=== PATIENT | male | born 1970 | race African-American/Black ===

== ENCOUNTER 2024-05-24 12:30 | Inpatient (IN) | payer OTHER ==
[~2024-05-24] VITALS: Ht 165.1 cm; Wt 69.2 kg
[2024-05-24] VITALS (17 sets, daily range): BP systolic 95–118; BP diastolic 53–68
[2024-05-24 12:53] LABS: BASO% 0.2 % (0-3); EOS% 4.6 % (0-8); HEMATOCRIT 27.6 % (39.0-50.0); HEMOGLOBIN 8.6 g/dl (14.0-18.0); IMMATURE GRANULOCYTES 1.4 % (0.0-5.0); LYMPH% 18.3 % (15-41); MEAN CELL VOLUME 82.6 fL CALC (80.0-100.0); MEAN CORPUSCULAR HGB 25.7 pG CALC (26.0-32.0); MEAN CORPUSCULAR HGB CONC 31.2 g/dL CAL (32.0-36.0); NEUT# 9.33 thou/uL (1.82-7.42); NEUT% 68.5 % (42-76); RED BLOOD COUNT 3.34 mill/uL (4.70-6.10)
[2024-05-24 13:06] LABS: ALBUMIN 3.1 g/dL (3.2-5.0); BILIRUBIN, TOTAL 0.3 mg/dL (0.2-1.3); CREATININE 1.1 mg/dL (0.7-1.3); POTASSIUM 3.1 mmol/l (3.5-5.1); TOTAL PROTEIN 6.4 g/dL (6.3-8.2)
[2024-05-24] MEDS ORDERED: SODIUM CHLORIDE 0.9% 1,000 ML IV ONE (13:25)
[2024-05-24] MEDS ORDERED: methylPREDNISolone Sod Succ 40 MG/ML SDV IV ONE (15:15)
[2024-05-24] MEDS ORDERED: POTASSIUM CHLORIDE 20 MEQ/TAB PO ONE (15:20)
[2024-05-24] MEDS ORDERED: ONDANSETRON HCl 4 MG/2 ML SDV IV ONE (15:25)
[2024-05-24] MEDS ORDERED: FERROUS SULFAT325 MG PO (15:34)
[2024-05-24] MEDS ORDERED: PROTONIX40 M2 PO (15:35)
[2024-05-24] MEDS ORDERED: METRONIDAZOLE500 MG PO (15:36)
[2024-05-24] MEDS ORDERED: ACETAMINOPHEN 325 MG/TAB PO PRN (16:05)
[2024-05-24] MEDS ORDERED: MAGNESIUM HYDROXIDE 30 ML UDC PO PRN (16:05)
[2024-05-24] MEDS ORDERED: ONDANSETRON HCl 4 MG/2 ML SDV IV PRN (16:10)
[2024-05-24] MEDS ORDERED: LACTATED RINGER'S 1,000 ML IV PRN (16:10)
[2024-05-24] MEDS ORDERED: Pantoprazole Sodium 40 MG VIAL (Protonix) IV SCH (17:00)
[2024-05-24] MEDS ORDERED: PIPERACILLIN Sodium-Tazobactam 3.375 GM in SODIUM CHLORIDE 0.9% 100 ML IV SCH (18:00)
[2024-05-24] MEDS ORDERED: ENOXAPARIN SODIUM 40 MG/0.4 ML SYR SC SCH (21:00)
[2024-05-24] MEDS ORDERED: methylPREDNISolone Sod Succ 40 MG/ML SDV IV SCH (21:00)
[2024-05-25 04:04] VITALS: BP 103/66
[2024-05-25 05:03] VITALS: BP 103/66
[2024-05-25 05:30] LABS: BASO% 0.1 % (0-3); EOS% 0.1 % (0-8); HEMATOCRIT 27.1 % (39.0-50.0); HEMOGLOBIN 8.1 g/dl (14.0-18.0); IMMATURE GRANULOCYTES 1.6 % (0.0-5.0); MEAN CELL VOLUME 84.2 fL CALC (80.0-100.0); MEAN CORPUSCULAR HGB 25.2 pG CALC (26.0-32.0); MEAN CORPUSCULAR HGB CONC 29.9 g/dL CAL (32.0-36.0); MONO% 2.9 % (2-13); NEUT# 12.02 thou/uL (1.82-7.42); NEUT% 88.3 % (42-76); RED BLOOD COUNT 3.22 mill/uL (4.70-6.10); RED CELL DISTRI WIDTH 16.6 % (11.5-15.5)
[2024-05-25 05:50] LABS: ACT PARTIAL THROMBO TIME 26.3 SECONDS (20.0-32.5); INTERNATIONAL NORMALIZED RATIO 1.1 RATIO (0.7-1.3)
[2024-05-25 05:54] LABS: PROTHROMBIN TIME 10.8 SECONDS (9.0-12.5)
[2024-05-25 05:59] LABS: ALBUMIN 2.7 g/dL (3.2-5.0); BILIRUBIN, TOTAL 0.2 mg/dL (0.2-1.3); C-REACTIVE PROTEIN 1.7 mg/dL (0-0.9); MAGNESIUM 2.2 mg/dL (1.6-2.3); TOTAL PROTEIN 5.9 g/dL (6.3-8.2)
[2024-05-25 06:04] LABS: POTASSIUM 4.2 mmol/l (3.5-5.1)
[2024-05-25 07:44] VITALS: BP 113/68
[2024-05-25] MEDS ORDERED: PANTOPRAZOLE SODIUM Sesquihydr 40 MG/TAB PO SCH (09:00)
[2024-05-25] MEDS ORDERED: IRON DEXTRAN 100 MG/2 ML AMP IV SCH (10:30)
[2024-05-25 16:34] VITALS: BP 116/73
[2024-05-25 18:30] VITALS: BP 109/66
[2024-05-25 18:41] VITALS: BP 109/66
[2024-05-25] MEDS ORDERED: ENOXAPARIN SODIUM 40 MG/0.4 ML SYR SC SCH (21:00)
[2024-05-26] VITALS (10 sets, daily range): BP systolic 117–135; BP diastolic 65–80
[2024-05-26 06:16] LABS: BASO% 0.1 % (0-3); HEMATOCRIT 24.6 % (39.0-50.0); HEMOGLOBIN 7.5 g/dl (14.0-18.0); IMMATURE GRANULOCYTES 2.7 % (0.0-5.0); LYMPH% 8.2 % (15-41); MEAN CORPUSCULAR HGB 26.2 pG CALC (26.0-32.0); MEAN CORPUSCULAR HGB CONC 30.5 g/dL CAL (32.0-36.0); MONO% 4.6 % (2-13); NEUT# 8.97 thou/uL (1.82-7.42); NEUT% 84.4 % (42-76); RED BLOOD COUNT 2.86 mill/uL (4.70-6.10); RED CELL DISTRI WIDTH 17.2 % (11.5-15.5)
[2024-05-26 06:25] LABS: ALBUMIN 2.4 g/dL (3.2-5.0); POTASSIUM 4.4 mmol/l (3.5-5.1); TOTAL PROTEIN 5.4 g/dL (6.3-8.2)
[2024-05-26 06:28] LABS: BILIRUBIN, TOTAL 0.4 mg/dL (0.2-1.3)
[2024-05-26] MEDS ORDERED: SODIUM CHLORIDE 0.9% 500 ML IV ONE (07:45)
[2024-05-26] MEDS ORDERED: methylPREDNISolone Sod Succ 40 MG/ML SDV IV SCH (09:00)
[2024-05-26 13:38] LABS: HEMATOCRIT 30.2 % (39.0-50.0)
[2024-05-26 13:45] LABS: HEMOGLOBIN 9.5 g/dl (14.0-18.0)
[2024-05-26] MEDS ORDERED: PREDNISONE20 MG PO (13:57)
== END 2024-05-26 17:20 | DRG 386 ==
LOC: ED 12:30 → ED-I 15:10 → ED 15:31 → MS2 15:32
PROVIDERS: Nurse Practitioner; Nurse Practitioner Family; ADMIT Student in an Organized Health Care Education/Training Program; ATTEND Student in an Organized Health Care Education/Training Program
PROC: 30233N1 Transfusion of Nonautologous Red Blood Cells into Peripheral Vein, Percutaneous Approach (ICD-10-PCS; principal; 2024-05-26)
DX: K51.011 Ulcerative (chronic) pancolitis with rectal bleeding (principal); D62 Acute posthemorrhagic anemia
CPT/HCPCS: J1650; J2470; P9016; Q9967